=== PATIENT | female | born 1980 | race Caucasian/White ===

== ENCOUNTER 2016-08-23 18:40 | Emergency (ER) | payer OTHER ==
[2016-08-23 20:25] VITALS: BP 101/60; PULSE 73; TEMP 97.6
[2016-08-23 20:26] VITALS: BMI 22.6
[2016-08-23] MEDS ORDERED: OXYCODONE HCL 5 MG TABLET PO ONE (20:46)
[2016-08-23] MEDS ORDERED: AMOXICILLIN/CLAVULANATE 875 MG TAB PO ONE (20:46)
--- NOTE | 2016-08-23 20:48 | EDPRACDOC ---
- General Information Chief Complaint: Toothache Stated Complaint: LEFT LOWER JAW PAIN Time Seen by Provider: 08/23/16 20:35 Information Source: Patient Mode Of Arrival: Car Home Medications: Home Medications Amoxicillin/Clavulanate Potas. [Augmentin] 875 mg PO BID #20 tab 08/23/16 Oxycodone Immediate Release [Oxycodone Immediate Release (OxyIR)] 5 mg PO Q6H PRN #20 tab 08/23/16 Allergies/Adverse Reactions: Allergies Allergy/AdvReac Type Severity Reaction Status Date / Time No Known Allergies Allergy Verified 08/23/16 20:41 - History of Present Illness Onset: 2-3 days HPI: PT PRESENTS WITH SWELLING AND PAIN TO LEFT LOWER JAW DUE TO BROKEN TEETH AND DENTAL CARIES. DENIES FEVER, CHILLS, NAUSEA OR VOMITING. Reported Tooth Problem: LEFT LOWER INCISORS AND CANIES Pain Severity: Reports: Moderate Relevant History of: Reports: None Modifying Factors: improves with: Heat, Cold, Chewing Associated Signs and Symptoms: Reports: None ED Past Medical History - History Reviewed Yes Nurses notes reviewed and agree except as marked - Patient Medical History GI/ History: Reports: Gastroesophageal Reflux Psychological History: Denies: Depression Surgical History: Reports: Cholecystectomy - Family Medical History Reports: Hypertension (MOTHER,FATHER), Cancer (MOTHER, SISTER-BREAST), Stroke ( MOTHER), Cardiac Disorders (FATHER-CABG). Denies: Diabetes - Social Medical History Smoking Status: Heavy tobacco smoker (5 or more cigarettes/day or daily pipe/ cigar) EDM Review of Systems - Review of Systems ROS Negative Except as Marked: Yes All systems reviewed and were negative except as marked - Physical Exam Constitutional: Alert Oriented to: Time, Person, Place Last recorded Vital Signs: Last Vital Signs Temp 97.6 F 08/23/16 20:24 Pulse 73 08/23/16 20:24 Resp 18 08/23/16 20:24 BP 101/60 08/23/16 20:24 Pulse Ox 96 08/23/16 20:24 Oxygen Pulse Oxygen Saturation 96 O2 Device Oxygen Flow Rate Fraction of Inspired Oxygen ( FIO2) - HEENT Head: Normal ( normocephalic) Eye Exam: Normal (PERRL, EOMI, Sclera white) Oropharynx: Normal (Pharynx:Moist without exudate,Gums-no swelling) Tympanic Membrane: Normal Nose: No Symptoms Reported (septum midline) Neck: Normal (FROM, trachea at midline) - Respiratory/Cardiovascular Respiratory: Normal - CTA (BBS clear to auscultation without adventitious sounds ) Cardiovascular: Normal (RRR without murmur, gallop or rub) - GI Auscultation: Normal (NABS) Palpation: Normal (Soft,No rebound or guarding, non distended) Tenderness: Non tender Gaxiola's Sign: Negative Rectal Exam: Deferred - Musculoskeletal Back: Normal (Non-Tender) Extremities: Normal (Normal tone, Pulses 2+ No cyanosis or edema, FROM) - Integumentary Skin: Normal, Warm, Dry Lymphatics: Normal (no adenopathy) - Neurologic Memory Impaired: Normal Motor Function: Normal (Normal tone, Pulses 2+ No cyanosis or edema, FROM) Cranial Nerve: Normal (CN II-X11 intact sensation, strength 5/5) Cerebellar: Normal Mood Description: Normal Perception: Normal ED Tooth Problem Exam - HEENT Face: Swelling, Tender Teeth: Left: Incisor Lower (BROKEN WITH CARIES), Canine Lower (BROKEN WITH CARIES), Bicuspid Lower (BROKEN WITH CARIES) Gingiva: Tender, Swelling Palate: Normal Mouth Range of Motion: Normal Sinuses: Normal Oropharynx: Normal Neck: Normal - Differential Diagnosis Periodontal Abscess, Tooth Fracture Decision Time to Discharge: 20:49 - Departure Disposition: Home Condition: Stable Final Diagnosis: Dental abscess (peridontal), Dental caries Instructions: Dental Abscess (ED), Dental Caries (ED) Education/Counseling Given To: Patient Education/Counseling Given Regarding: Diagnosis, Treatment, Prognosis, Follow Up Referrals: [facility] [NonStaff] - One Week Prescriptions: New Amoxicillin/Clavulanate Potas. [Augmentin] 875 mg PO BID #20 tab Oxycodone Immediate Release [Oxycodone Immediate Release (OxyIR)] 5 mg PO Q6H PRN #20 tab PRN Reason: Pain Additional Instructions: INCREASE FLUID INTAKE. FOLLOW UP WITH PRIMARY CARE PROVIDER NEXT WEEK. TAKE ALL ANTIBIOTICS PRESCRIBED. RETURN TO THE ED FOR WORSENING SYMPTOMS OR CONCERNS.
== END 2016-08-23 21:07 | disposition home or self-care (01) ==
LOC: EDMC 18:40
DX: K04.7 Periapical abscess without sinus (principal); K02.9 Dental caries, unspecified
CPT/HCPCS: 99282; J3490